=== PATIENT | male | born 1955 ===

== ENCOUNTER 2025-03-27 14:34 | Outpatient (CLI) | payer MEDICARE, SELFPAY ==
[2025-03-27 15:07] LABS: Abs Immature Grans 0.03 10^3/uL (0.0-0.06); Absolute Basophil Count 0.04 10^3/uL (0.0-0.2); Absolute Eosinophil Count 0.18 10^3/uL (0.0-0.7); Absolute Lymphocyte Count 1.22 10^3/uL (1.2-3.4); Absolute Monocyte Count 0.72 10^3/uL (0.1-0.8); Absolute Neutrophil Count 4.87 10^3/uL (1.2-6.7); Basophils % 0.6 %; Eosinophils % 2.5 %; HCT 43.2 % (40.0-50.0); HGB 14.3 g/dL (13.5-17.5); Immature Grans % 0.4 %; Lymphocytes % 17.3 %; MCH 28.9 pg (27.0-33.0); MCHC 33.1 % (32.0-36.0); MCV 87 fL (80-95); MPV 9.4 fL (8.0-11.0); Monocytes % 10.2 %; Platelet Count 319 10^3/uL (130-400); RBC 4.95 10^6/uL (4.36-5.78); RDW 13.4 % (11.8-14.1); RDW-SD 42.8 fL; WBC 7.06 10^3/uL (4.4-10.8)
[2025-03-27 15:20] LABS: Hemoglobin A1C 5.6 % (<5.7)
[2025-03-27 15:53] LABS: Magnesium 1.8 mg/dL (1.8-2.4); PHOSPHORUS 3.5 mg/dL (2.6-4.7); TSH 3.53 uIU/mL (0.36-3.74)
[2025-03-27 22:16] LABS: PSA, Screening 13.4 ng/mL (<=6.5)
== END 2025-03-27 14:35 | disposition home or self-care (01) ==
PROVIDERS: PCP Family Medicine; Visit Provider Family Medicine
DX: R73.9 Hyperglycemia, unspecified (principal); F41.9 Anxiety disorder, unspecified; E83.39 Other disorders of phosphorus metabolism; Z12.5 Encounter for screening for malignant neoplasm of prostate; G93.31 Postviral fatigue syndrome
CPT/HCPCS: 36415; 84153; 83036; 83735; 84100; 84443; 85025

== ENCOUNTER 2025-03-27 16:52 | Outpatient (REF) | payer MEDICARE, SELFPAY ==
[2025-03-27 16:34] LABS: Bilirubin Negative (Negative); Blood Negative (Negative); Clarity Clear (Clear); Glucose Negative (Negative); Ketones Negative (Negative); Leukocyte Esterase Moderate (Negative); Nitrite Positive (Negative); Urobilinogen 0.2 mg/dL (Up to 0.2)
[2025-03-27 16:56] LABS: Bacteria Many HPF (Negative); C & S Indicated? C&S Done As Ordered; Casts Negative LPF (Negative); Crystals Negative HPF (Negative); Epithelial Cells Rare HPF (Negative); Mucus Negative (Negative); RBC 0-2 HPF (0-2)
== END 2025-03-27 16:53 | disposition home or self-care (01) ==
LOC: LBN 16:52
PROVIDERS: PCP Family Medicine; Visit Provider Family Medicine
DX: Z87.442 Personal history of urinary calculi (principal); R30.0 Dysuria
CPT/HCPCS: 87077; 81003; 81015; 87086; 87186

== ENCOUNTER 2025-05-25 12:10 | Outpatient (CLI) | payer MEDICARE, SELFPAY ==
[2025-05-25 12:01] LABS: Glucose Negative (Negative)
[2025-05-25 12:08] LABS: WBC >50 HPF (0-5)
[2025-05-25 12:22] LABS: Hemoglobin A1C 5.5 % (<5.7)
[2025-05-25 12:52] LABS: Calculated LDL 116 mg/dL (<100); Cholesterol 209 mg/dL (<200); HDL Cholesterol 67 mg/dL (>or=40); Triglyceride 134 mg/dL (<150)
[2025-05-25 18:04] LABS: PSA, Screening 13.2 ng/mL (<=6.5)
== END 2025-05-25 12:11 | disposition home or self-care (01) ==
LOC: LBO 12:10
PROVIDERS: PCP Family Medicine; Visit Provider Urology
DX: Z12.5 Encounter for screening for malignant neoplasm of prostate (principal); R82.81 Pyuria; E78.5 Hyperlipidemia, unspecified; N52.9 Male erectile dysfunction, unspecified
CPT/HCPCS: 36415; 80061; 84153; 84403; 87077; 81003; 81015; 83036; 87086; 87186

== ENCOUNTER → 2025-09-25 01:34 | Outpatient (CLI) | payer MEDICARE, SELFPAY ==
--- NOTE | 2025-09-25 | DI.MRI_ITS ---
Exam(s) MR LUMBAR SPINE WO EXAM: MR LUMBAR SPINE WO CLINICAL HISTORY: SPINAL STENOSIS LUMBAR REGION M48.061 KNOWN HX STENOSIS WORSENING LOWER. TECHNIQUE: Multiplanar multisequence MRI of the Lumbar spine was performed. COMPARISON: No exams were available for comparison FINDINGS: Bones: The last intervertebral disc space is designated the L5/S1 level for the numbering purpose of this examination. The vertebral body heights are well maintained. Alignment: Moderate to severe dextro scoliosis centered at L1-2. The marrow signal characteristics are unremarkable. Hemangiomas are noted at L to an S1. Cord: The conus tip ends at the T12 level. It is of normal size and signal intensity. T12-L1: Asymmetric loss of disc height, eccentric toward the left hip with prominent endplate osteophytes projecting laterally. No focal disc herniation is present. No central spinal canal stenosis.No neural foraminal stenosis. L1-2: . Moderate loss of disc height eccentric toward the left, with endplate osteophytes projecting laterally. No central canal stenosis or neural foraminal narrowing. L2-3: Loss of disc height and bridging osteophytes on the left. No focal disc herniation is present. There are facet degenerative changes. Mild left neural foraminal narrowing. Mild central canal stenosis. No focal disc herniation is present. L3-4: Loss of disc height eccentric toward the right. No focal disc herniation is present. No central spinal canal stenosis.Severe right foraminal stenosis. L4-5:Loss of disc height eccentric toward the right. Right-sided facet degenerative changes. Severe right neural foraminal narrowing. No focal disc herniation is present. No central spinal canal stenosis. L5-S1: Bilateral L5 pars defects. Mild loss of disc height. Small endplate osteophytes. No focal disc herniation is present. No central spinal canal stenosis.Mild bilateral neural foraminal stenosis. The visualized SI joints and sacrum are unremarkable. Soft tissues: The paraspinal soft tissues are unremarkable. IMPRESSION: Severe degenerative disc changes with prominent endplate osteophytes. No evidence of disc herniation. Mild central canal stenosis is noted at L2-3.. There is severe right neural foraminal narrowing at L3-4 and L4-5 DATA REPOSITORY:
== END ==
PROVIDERS: PCP Family Medicine; Visit Provider Family Medicine
DX: M48.061 Spinal stenosis, lumbar region without neurogenic claudication (principal)
CPT/HCPCS: 72148